=== PATIENT | female | born 1995 | race Caucasian/White ===

== ENCOUNTER 2019-10-26 | Inpatient (IN) ==
[2019-10-26] MEDS ORDERED: Ringers Solution, Lactated 1,000 ML IVC SCH (00:15)
[2019-10-26] MEDS ORDERED: Metoclopramide 10 MG/2 ML VIAL IVP PRN (00:15)
[2019-10-26] MEDS ORDERED: Famotidine 20 MG/2 ML VIAL IVP PRN (00:15)
[2019-10-26] MEDS ORDERED: *HR* FentaNYL (PF) 100 MCG/2 ML VIAL IVP PRN (00:15)
[2019-10-26] MEDS ORDERED: Naloxone 0.4 MG/ML INJ IVP PRN (00:15)
[2019-10-26] MEDS ORDERED: Ondansetron 4 MG/2 ML VIAL IVP PRN (00:15)
[2019-10-26] MEDS ORDERED: Azithromycin 500 MG in 0.9 % Sodium Chloride 250 ML IVPB ONE (00:15)
[2019-10-26] MEDS ORDERED: Lidocaine 1% 20 ML MDV ID PRN (00:15)
[2019-10-26] MEDS: miSOPROStoL 25 MCG TABLET PO PRN ×2 (00:31→04:35)
[2019-10-26 00:39] LABS: Basophils % 0.3 %; Eosinophils # 0.2 K/mcL (0.0-0.6); Eosinophils % 1.7 %; Hematocrit 39.7 % (35.3-44.9); Hemoglobin 13.5 g/dL (11.5-15.4); Immature Granulocytes % 0.9 % (0-4); Lymphocytes # 2.5 K/mcL (0.6-4.6); Lymphocytes % 19.3 %; Mean Corpuscular Hemoglobin 34.3 pg (28.0-33.3); Mean Corpuscular Volume 100.8 fL (83.0-100.0); Mean Platelet Volume 9.9 fL (9.4-12.4); Monocytes % 7.6 %; Neutrophils # 9.1 K/mcL (1.6-8.9); Platelet Count 322 K/mcL (140-400); Red Blood Count 3.94 M/mcL (3.82-4.97); Red Cell Distribution Width 12.7 % (11.5-14.5); Segmented Neutrophils % 70.2 %
[2019-10-26 00:49] LABS: Amphetamine Screen,Urine Negative ng/mL (Cutoff=1000); Barbiturate Screen,Urine Negative ng/mL (Cutoff=200); Benzodiazepines Screen,Urine Negative ng/mL (Cutoff=200); Cannabinoid Screen,Urine Negative ng/mL (Cutoff = 50); Cocaine Screen,Urine Negative ng/mL (Cutoff= 300); Opiate Screen,Urine Negative ng/mL (Cutoff=300); Phencyclidine Screen,Urine Negative ng/mL (Cutoff=25)
[2019-10-26] MEDS ORDERED: Oxytocin 20 units/ LR 1000 mL 20 UNIT/1,000 ML BAG IVC ONE (10:40)
[2019-10-26] MEDS ORDERED: Oxytocin 20 units/ LR 1000 mL 20 UNIT/1,000 ML BAG IVC SCH (12:45)
[2019-10-26] MEDS ORDERED: Bupivacaine-MPF 0.25% 10 ML VIAL EP ONE (18:18)
[2019-10-26] MEDS ORDERED: *HR* FentaNYL (PF) 100 MCG/2 ML VIAL EP ONE (18:18)
[2019-10-26] MEDS ORDERED: EPHEDrine 50 MG/ML VIAL IVP PRN (18:18)
[2019-10-26] MEDS ORDERED: *HR* FentaNYL (PF) 100 MCG/2 ML VIAL ONE (18:19)
[2019-10-26] MEDS ORDERED: Epidural Premix (fent/bupiv) 110 ML EP SCH (18:30)
[2019-10-27] MEDS ORDERED: *HR* FentaNYL (PF) 100 MCG/2 ML VIAL ONE (00:15)
[2019-10-27] MEDS ORDERED: *HR* Propofol 200 MG/20 ML VIAL IVP ONE (00:18)
[2019-10-27] MEDS ORDERED: *HR* Succinylcholine 200 MG/10 ML VIAL IVP ONE (00:18)
[2019-10-27] MEDS ORDERED: *HR* Oxytocin 10 UNIT/ML VIAL IM ONE (00:23)
[2019-10-27] MEDS ORDERED: Dexamethasone 4 MG/ML VIAL ONE (00:28)
[2019-10-27] MEDS ORDERED: Ondansetron 4 MG/2 ML VIAL ONE (00:28)
[2019-10-27] MEDS ORDERED: Chloroprocaine/PF 20 ML VIAL INFILT ONE (00:32)
[2019-10-27] MEDS ORDERED: Ringers Solution, Lactated 1,000 ML ONE (00:32)
[2019-10-27] MEDS ORDERED: Acetaminophen IV 1,000 MG/100 ML INFUS..BTL ONE (00:33)
[2019-10-27] MEDS ORDERED: *HR* Morphine Sulfate/PF 10 MG/10 ML AMPUL ONE (00:39)
[2019-10-27] MEDS ORDERED: *HR* HYDROmorphone (PF) 1 MG/ML SYRINGE IVP PRN (00:47)
[2019-10-27] MEDS ORDERED: Ibuprofen 400 MG TABLET PO PRN (00:47)
[2019-10-27] MEDS ORDERED: Morphine Sulfate 2 MG/ML SYRINGE IVP PRN (00:47)
[2019-10-27] MEDS ORDERED: Naloxone 0.4 MG/ML INJ IVP PRN (00:47)
[2019-10-27] MEDS ORDERED: Ondansetron 4 MG/2 ML VIAL IVP PRN ×2 (00:47→01:13)
[2019-10-27] MEDS ORDERED: Simethicone 80 MG TAB.CHEW PO PRN (01:13)
[2019-10-27] MEDS ORDERED: Ketorolac 30 MG/ML VIAL ONE (01:13)
[2019-10-27] MEDS ORDERED: Sennosides 8.6 MG TABLET PO PRN (01:13)
[2019-10-27] MEDS ORDERED: *HR* OxyCODONE/APAP 5/325 TABLET PO PRN (01:13)
[2019-10-27] MEDS ORDERED: Metoclopramide 10 MG/2 ML VIAL IVP PRN (01:13)
[2019-10-27] MEDS ORDERED: Rho Immune Globulin 1,500 UNIT SYRINGE IM ONE (01:13)
[2019-10-27] MEDS ORDERED: *HR* HYDROMORPHONE 2 MG/ML VIAL ONE (01:14)
[2019-10-27] MEDS ORDERED: Oxytocin 20 units/ LR 1000 mL 20 UNIT/1,000 ML BAG IVC SCH (01:15)
[2019-10-27] MEDS ORDERED: Ringers Solution, Lactated 1,000 ML IVC SCH (01:15)
[2019-10-27 05:38] LABS: Basophils % 0.1 %; Hematocrit 39.2 % (35.3-44.9); Hemoglobin 13.1 g/dL (11.5-15.4); Immature Granulocytes % 0.4 % (0-4); Lymphocytes % 4.6 %; Mean Corpuscular HGB Conc 33.4 g/dL (31.6-35.5); Mean Corpuscular Hemoglobin 33.3 pg (28.0-33.3); Mean Corpuscular Volume 99.7 fL (83.0-100.0); Mean Platelet Volume 9.9 fL (9.4-12.4); Monocytes # 1.3 K/mcL (0.0-1.3); Monocytes % 5.8 %; Neutrophils # 19.4 K/mcL (1.6-8.9); Platelet Count 275 K/mcL (140-400); Red Blood Count 3.93 M/mcL (3.82-4.97); Red Cell Distribution Width 12.6 % (11.5-14.5); Segmented Neutrophils % 89.1 %
[2019-10-27 05:40] LABS: White Blood Count 21.8 K/mcL (4.3-11.1)
[2019-10-27] MEDS: cephALEXin 500 MG CAPSULE PO SCH ×3 (08:22→20:43)
[2019-10-27] MEDS: Prenatal Vit/FA 1 EACH TABLET PO SCH (08:22)
[2019-10-27] MEDS: metroNIDAZOLE 500 MG TABLET PO SCH ×3 (08:23→20:43)
[2019-10-27] MEDS: Acyclovir 200 MG CAPSULE PO SCH ×2 (08:58→20:44)
[2019-10-27] MEDS: Ibuprofen 600 MG TABLET PO PRN (20:43)
[2019-10-27] MEDS: *HR* OxyCODONE/APAP 5/325 TABLET PO PRN (20:43)
[2019-10-28] MEDS: Ibuprofen 600 MG TABLET PO PRN ×2 (03:18→12:41)
[2019-10-28 08:01] VITALS: BP 110/73
[2019-10-28] MEDS: metroNIDAZOLE 500 MG TABLET PO SCH (08:05)
[2019-10-28] MEDS: cephALEXin 500 MG CAPSULE PO SCH (08:06)
[2019-10-28] MEDS: *HR* OxyCODONE/APAP 5/325 TABLET PO PRN ×2 (08:06→12:41)
[2019-10-28] MEDS: Acyclovir 200 MG CAPSULE PO SCH (08:06)
[2019-10-28] MEDS: Prenatal Vit/FA 1 EACH TABLET PO SCH (08:06)
== END 2019-10-28 13:54 | disposition home or self-care (01) | DRG 540 ==
LOC: 1NENULAB → 1NENUOBS 10-27 03:37
PROVIDERS: ADMIT Student in an Organized Health Care Education/Training Program; ATTEND Student in an Organized Health Care Education/Training Program